=== PATIENT | female | born 1995 | race African-American/Black ===

== ENCOUNTER 2019-12-23 16:10 | Inpatient (IN) | payer OTHER ==
[~2019-12-23] VITALS: Ht 160 cm; Wt 54.4 kg
--- NOTE | ~2019-12-23 | OP ---
PATIENT NAME: REBECCA MONTES DE OCA MEDICAL RECORD: [id number] :89 LOCATION:[id number] ADMISSION DATE:12/23/19 SURGEON: JOSE RAUL HAMMER MD DATE OF OPERATION: 12/23/2019 PREOPERATIVE DIAGNOSES: 1. Severe anemia. 2. Suspected incomplete . POSTOPERATIVE DIAGNOSES: 1. Severe anemia. 2. Suspected incomplete . PROCEDURE: Suction dilation and curettage. SURGEON: Jose Raul Hammer MD ANESTHESIA: General endotracheal. ESTIMATED BLOOD LOSS: 100 cc intraoperatively. INTRAVENOUS FLUIDS: Per anesthesia record. FINDINGS: 1. Grossly normal-appearing external genitalia. 2. Dilated cervix with products of conception noted at cervical os. 3. Minimal bleeding noted at that time. COMPLICATIONS: None apparent. SPECIMENS: Endometrial curettings. DESCRIPTION OF PROCEDURE: The patient taken to the operating room where general anesthesia was achieved without difficulty. The patient was prepped and draped in normal sterile fashion in the dorsal lithotomy position in the [facility]. The bladder was drained of approximately 200 cc of clear yellow urine. At this point, a Graves speculum was placed into the vagina and the cervical os was noted to be partially dilated with products of conception at the cervical os. These were removed with a ring forcep and sent to pathology. The patient was noted to be dilated to 8 mm without resistance. At this point, a #7 straight suction curette was used to remove gross products of conception from the uterus. Two passes were performed with obvious return of products of conception. A sharp curettage was then performed gently in all 4 quadrants without any further return of material. At this point, suction curette was used to gently perform a third pass and again no gross products of conception were returned. The single tooth tenaculum was removed from the anterior lip of the cervix and good hemostasis was noted from the cervical os and the tenaculum sites. The patient tolerated the procedure well, transferred to postanesthesia recovery stable without incident. TRANSINT:[id number] Voice Confirmation ID: [id number] DOCUMENT ID: [id number] OPERATIVE REPORT [id number] REBECCA MONTES DE OCA JOSE RAUL HAMMER MD CC: [id number] DICTATION DATE: 12/29/19628 LOCKSTITCH LINING SETTER: 12/29/19 1521 DIS IN 12/24/19 [facility] [address] [place] [address]
[2019-12-23 16:43] LABS: BASOPHILS 0.8 % (0-2); EOSINOPHILS 2.3 % (0-7); IMMATURE GRANULOCYTES 0.2 % (0-5); LYMPHOCYTES 33.6 % (15-50); MCHC 24.3 g/dL (31.0-37.0); MCV 59.7 fL (80.0-100.0); MEAN PLATELET VOLUME 8.4 fL (7.4-10.4); MONOCYTES 10.6 % (2-11); NEUTROPHILS 52.5 % (40-80); RDW 19.4 % (11.5-14.5); WBC 5.2 10x3/uL (4.8-10.8)
[2019-12-23 16:56] LABS: HCG SERUM POSITIVE (NEGATIVE)
[2019-12-23 16:59] LABS: CALC OSMOLALITY 276 mosm/kg (275-300); CALCIUM 9.3 mg/dL (8.5-10.1); CARBON DIOXIDE 24.7 mmol/L (21.0-32.0); CHLORIDE - SERUM 104 mmol/L (98-107); CREATININE - SERUM 0.7 mg/dL (0.6-1.3); GLUCOSE 105 mg/dL (74-106); SODIUM 140 mmol/L (136-145); UREA NITROGEN 8 mg/dL (7-18); eGFR NON AFRICAN AMERICAN > 90 mL/min (90-120)
[2019-12-23 17:10] LABS: HEMATOCRIT 18.5 % (36.0-48.0); HEMOGLOBIN 4.5 g/dL (12-16); MCH 14.5 pg (26.0-34.0); PLATELET COUNT 608 10x3/uL (130-400)
[2019-12-23 17:26] LABS: ALBUMIN 4.2 g/dL (3.4-5.0); ALKALINE PHOSPHATASE 48 U/L (30-120); ALT (SGPT) 14 U/L (10-68); BILIRUBIN - TOTAL 0.49 mg/dL (0.2-1.3); HCG - QUANTITATIVE (MATERNAL) 2994 mIU/mL
--- NOTE | 2019-12-23 17:32 | NUR ---
PATIENT TO U/S VIA W/C.
[2019-12-23 17:36] LABS: BILIRUBIN NEGATIVE (NEGATIVE); GLUCOSE NEGATIVE (NEGATIVE); KETONE NEGATIVE (NEGATIVE); NITRITE POSITIVE (NEGATIVE); UROBILINOGEN NORMAL (NORMAL)
[2019-12-23 17:42] LABS: EPITHELIAL CELLS 0-5 /hpf (0-5); WHITE CELLS - URINE 25-50 /hpf (NEGATIVE)
[2019-12-23 17:43] LABS: BACTERIA MODERATE /hpf (NEGATIVE)
[2019-12-23 17:52] LABS: APTT 31.2 SECONDS (22.8-39.4); INR 1.12 (0.85-1.17); PROTIME 14.3 SECONDS (11.6-15.0)
--- NOTE | 2019-12-23 19:04 | NUR ---
FIRST UNIT BLOOD INFUSING. NO ADVERSE REACTION NOTED
[2019-12-23 22:34] VITALS: BP 109/69
[2019-12-23 22:48] VITALS: BP 109/69; Ht 160 cm; Wt 54.4 kg
--- NOTE | 2019-12-23 23:42 | NUR ---
ZOSYN THERAPY STARTED AT THIS TIME. DANIELLA KHAN
--- NOTE | 2019-12-24 01:40 | NUR ---
PT RESTING AT THIS TIME. ASLEEP. NO DISTRESS NOTED. Alli GRAVES RN
--- NOTE | 2019-12-24 04:00 | NUR ---
PT RESTING AT THIS TIME. NO DISTRESS NOTED. Alli GRAVES RN
[2019-12-24 06:20] VITALS: BP 95/58
--- NOTE | 2019-12-24 06:20 | NUR ---
PT REC'D IN BED. AWAKE AT THIS TIME. VSS. NO DISTRESS NOTED. Alli GRAVES RN
[2019-12-24 07:08] LABS: BASOPHILS 0 % (0-2); EOSINOPHILS 0 % (0-7); IMMATURE GRANULOCYTES 0.3 % (0-5); MCH 20.2 pg (26.0-34.0); MCHC 29.9 g/dL (31.0-37.0); MEAN PLATELET VOLUME 8.6 fL (7.4-10.4); MONOCYTES 3.3 % (2-11); NEUTROPHILS 91.4 % (40-80); RDW 25.5 % (11.5-14.5)
[2019-12-24 07:09] LABS: HEMATOCRIT 26.1 % (36.0-48.0); HEMOGLOBIN 7.8 g/dL (12-16); MCV 67.6 fL (80.0-100.0); RBC 3.86 10x6/uL (4.00-5.40); WBC 11.7 10x3/uL (4.8-10.8)
[2019-12-24 07:10] LABS: PLATELET COUNT 447 10x3/uL (130-400)
[2019-12-24 07:20] VITALS: BP 106/58
--- NOTE | 2019-12-24 07:20 | NUR ---
AM ASSESSMENT COMPLETED. PT DENIES PAIN OR NEEDS AT THIS TIME. SEE FLOWSHEET FOR VITAL SIGNS AND ASSESSMENT FLOWSHEET. PT REQUESTS ICE WATER, SERVED. PT'S MOTHER REQUESTS CUP OF ICE, SERVED. SR UP X2, CALL LIGHT AND PHONE WITHIN REACH.
--- NOTE | 2019-12-24 07:30 | NUR ---
DR. SALCEDO IN ROOM, SPEAKING WITH PT. MD WANTS PT TO HAVE REGULAR DIET, AND THEN PT MAY BE DISCHARGED TO HOME.
--- NOTE | 2019-12-24 08:15 | NUR ---
DIETARY HAS SERVED REGULAR BREAKFAST TRAY, PT HAS TOLERATED CLEAR LIQUID DIET WELL.
--- NOTE | 2019-12-24 08:45 | NUR ---
PT TOLERATES REGULAR DIET WELL. IV TO LEFT WRIST DC'D WITH CATH INTACT. PT BRIAN WELL. PT DRESSING FOR DISCHARGE. PT'S MOTHER IN ROOM WITH HER.
[2019-12-24] MEDS ORDERED: AUGMENTIN 875-11 TAB PO (08:59)
[2019-12-24] MEDS ORDERED: HYDROCODON-ACE1 EAC7 PO (09:02)
--- NOTE | 2019-12-24 09:20 | NUR ---
DISCHARGE INSTRUCTIONS EXPLAINED TO PT, PT PROVIDED WITH COPIES OF DISCHARGE INSTRUCTIONS, ALONG WITH PRESCRIPTIONS.
--- NOTE | 2019-12-24 09:30 | NUR ---
PT DISCHARGED BY WHEELCHAIR IN STABLE CONDITION TO PRIVATE VEHICLE WITH HER MOTHER, DRIVING.
== END 2019-12-24 09:30 | disposition home or self-care (01) | DRG 770 ==
LOC: D.ER 16:10 → D.OPS 16:10 → EDSTATUS 20:36 → D.OPS 21:18 → D.LD 21:18
PROVIDERS: Family Medicine; ADMIT Obstetrics & Gynecology; ATTEND Obstetrics & Gynecology
PROC: 10D17ZZ Extraction of Products of Conception, Retained, Via Natural or Artificial Opening (ICD-10-PCS; principal; 2019-12-23 20:30)
DX: O03.4 Incomplete spontaneous abortion without complication (principal); O99.011 Anemia complicating pregnancy, first trimester; D64.9 Anemia, unspecified

== ENCOUNTER 2020-08-19 10:14 | Outpatient (CLI) | payer OTHER ==
[~2020-08-19] VITALS: Ht 160 cm; Wt 53.2 kg
[~2020-08-19 10:14] MED LIST: AUGMENTIN 875-11 TAB PO; HYDROCODON-ACE1 EAC7 PO
[2020-08-19 15:28] VITALS: BP 99/59; Ht 160 cm; Wt 53.2 kg
--- NOTE | 2020-08-19 16:06 | NUR ---
1600 IV REMOVED AND INSTRUCTIONS GIVEN
== END 2020-08-19 16:00 | disposition home or self-care (01) ==
LOC: D.OPS 10:14
PROVIDERS: ATTEND Obstetrics & Gynecology
DX: D64.9 Anemia, unspecified (principal)